=== PATIENT | male | born 1945 | race Caucasian/White ===

== ENCOUNTER 2016-10-30 15:27 | Inpatient (IN) | payer MEDICARE ==
[~2016-10-30] VITALS: Ht 180.3 cm; Wt 97.5 kg
--- NOTE | ~2016-10-30 | WND ---
ADMIT: 10/30/2016 RM/LOC: 406 [facility] MR#: [id number] [address] [address] CARLOS DOUGHERTY [address] [place] [address] [facility] SEX: M AGE: 71 : 1945 DATE OF VISIT: 10/31/2016 REASON FOR VISIT: Right lower extremity cellulitis. HISTORY OF PRESENT ILLNESS: Carlos is a 71-year-old male, who is being seen today for right lower extremity cellulitis. He is cared for in his own home by his brother. He is a [facility] patient. He was initially seen at the [facility]. Carlos has a history of cirrhosis secondary to hepatitis C. He is followed by the [facility] and was recently evaluated and found to be free of any hepatitis C status post treatment with Harvoni. Carlos does report 8/10 pain to the right lower extremity. A venous ultrasound was done on admission and was not found to have any DVTs. Also, x ray was completed and a CT looking for any free air secondary to compartment syndrome. PAST MEDICAL HISTORY: 1. Hepatitis C. 2. Liver cirrhosis. 3. Vitamin D deficiency. 4. Portal hypertension. 5. Posttraumatic stress disorder. 6. Opioid dependence. 7. Obesity. ALLERGIES: Tramadol. CURRENT MEDICATIONS: 1. Dolophine. 2. Clindamycin 900 mg every 8 hours. 3. Zosyn 3.375 g every 8 hours. SOCIAL HISTORY: Carlos resides at home. His brother is his care provider. He denies any tobacco, alcohol, or recreational drug use. FAMILY HISTORY: He denies any family history of diabetes mellitus or heart problems. REVIEW OF SYSTEMS: Carlos denies any fever or chills. He denies nausea, vomiting, or diarrhea. He reports that his appetite is finally good. He denies chest pain, shortness of breath or cough. He does report pain in his right lower extremity is an 8/10 and it is a burning sensation. PHYSICAL EXAMINATION: VITAL SIGNS: Temperature 96.9 degrees Fahrenheit, pulse 91, blood pressure 112/68, respirations 16, pulse ox 96% on room air. EXTREMITIES: Assessment of right lower extremity reveals multiple open weeping areas that are draining copious amounts of yellow serous drainage. There is some superficial skin sloughing of the epithelium along the anterior surface of the right lower extremity. The patient has 2+ pitting edema in the right lower extremity. He has 1+ pedal pulse. He has erythema extending from ADMIT: 10/30/2016 RM/LOC: 406 [facility] MR#: [id number] [address] [place] [address] Wound Care Clinic SEX: M AGE: 71 : 1945 the ankle area to below his knee. ASSESSMENT: 1. Cellulitis to right lower extremity. 2. Edema to lower extremity. PLAN: Staff will cleanse his right lower extremity with soap and water. They will apply Aloe [place] then Xeroform and secure with Kerlix. They need to change this daily and as needed for excessive contamination. If they need to, they can add ABD pads for extra absorption. I would like to thank Dr. Espana for allowing us to participate in Carlos's care. Wound Care will follow along as needed while he is in the hospital. Kristen Jimenez APRN/ saravanan JOB #: [id number] CC: Wilfrido Pierson, Attending Physician Wilfrido Pierson, Family Physician
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
[2016-11-07] MEDS ORDERED: DOCUSATE SODIU1 EACH PO (11:10)
[2016-11-07] MEDS ORDERED: VITAMIN D-32000 UNI1 PO (11:10)
[2016-11-07] MEDS ORDERED: AUGMENTIN875 MG PO (11:11)
[2016-11-07] MEDS ORDERED: PEPCID DPS20 MG PO (11:11)
[2016-11-07] MEDS ORDERED: DOLOPHINE DPS10 MG PO (11:11)
[2016-11-07] MEDS ORDERED: LASIX DPS40 MG PO (11:11)
[2016-11-07] MEDS ORDERED: LOPRESSOR DPS50 MG PO (11:11)
[2016-11-07] MEDS ORDERED: LANOXIN DPS0.125 MG PO (11:12)
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
--- NOTE | 2016-11-13 19:06 | CO ---
ADMIT: 10/30/2016 RM/LOC: 406 [facility] MR#: [id number] [address] [address] CARLOS DOUGHERTY [address] [address] Consultation Report SEX: M AGE: 71 : 1945 DATE OF CONSULTATION: 10/31/2016 ATTENDING PHYSICIAN: Wilfrido Pierson CONSULTING PHYSICIAN: Wilfrido Conroy MD HISTORY OF PRESENT ILLNESS: The patient is a 71-year-old [facility] patient with chronic hepatitis C, who has been cared for at home and over last week has had progressive right-sided leg pain, swelling, redness. I was asked to see for cellulitis, tight compartments, rule out fasciitis or compartment syndrome. PAST MEDICAL HISTORY: Includes hep C infection, history of cirrhosis, vitamin D deficiency, PTSD, opioid dependence. ALLERGIES: TRAMADOL. MEDICATIONS: Include: 1. Clindamycin. 2. Zosyn. 3. Dolophine. 4. He has been on methadone at home. SOCIAL HISTORY: Denies alcohol or drug use. FAMILY HISTORY: Noncontributory. REVIEW OF SYSTEMS: Denies headaches, chest pain, or shortness of breath. He has the right lower extremity pain. PHYSICAL EXAMINATION: VITAL SIGNS: Currently, he is afebrile. Vitals are stable. HEART: Regular. LUNGS: Clear. ABDOMEN: Soft, nondistended, nontender. EXTREMITIES: Lower extremity exam shows significantly swollen right lower extremity with tight compartments and pain to palpation. He has motor function in the right foot, has decreased sensations and some mild paresthesias to exam. LABORATORY AND IMAGING DATA: He has had an MRI, which shows diffuse cellulitis, no abscess. No obvious findings to suggest subcu or fascial air ADMIT: 10/30/2016 RM/LOC: 406 [facility] MR#: [id number] [address] [address] CARLOS DOUGHERTY [address] [place] [address] Consultation Report SEX: M AGE: 71 : 1945 and/or fasciitis. He has normal lactic acid level and reportedly, he has had some improvement since his initial admission with IV antibiotics. ASSESSMENT AND PLAN: The patient is a 71-year-old with severe right lower extremity cellulitis with concerns regarding a compartment syndrome. He has made already some progress. His leg is still in a dependent position. Ideally, I would like to get this leg elevated higher than the level of his heart on 3 or 4 pillows. I think that will significantly get some of the edema and swelling out of his leg to assist in some of his issues with pain. We will continue with IV antibiotics, wound cares, and observation. EDIT: 11/01/2016 0648 njv Wilfrido Conroy MD/ saravanan JOB #: [id number] CC: Wilfrido Pierson, Attending Physician Wilfrido Pierson, Family Physician
--- NOTE | 2016-11-13 19:06 | CO ---
ADMIT: 10/30/2016 RM/LOC: 406 [facility] MR#: [id number] [address] [address] CARLOS DOUGHERTY [address] [place] [address] Consultation SEX: M AGE: 71 : 1945 DATE OF CONSULTATION: 10/31/2016 ATTENDING PHYSICIAN: Wilfrido Pierson CONSULTING PHYSICIAN: Wilfrido Conroy MD REASON FOR CONSULTATION: Right lower leg cellulitis. HISTORY OF PRESENT ILLNESS: Carlos is a very pleasant 71-year-old male, who states that he has noticed right lower leg pain, redness, and swelling for about 8 days now. He is unsure exactly how this happened but denies ever having prior episodes of this. He usually gets around okay with a cane. He further denies any fever or chills. He has been admitted to the hospital and currently on clindamycin and Zosyn. PAST MEDICAL HISTORY: Significant for cirrhosis, prior hepatitis C infection, chronic pain, and unspecified neuropathy. PAST SURGICAL HISTORY: Eye surgery. The patient cannot describe exactly what the eye surgery was. ALLERGIES: TRAMADOL, NALOXONE, AND PENTAZOCINE. FAMILY HISTORY: Noncontributory. SOCIAL HISTORY: The patient denies any current tobacco, alcohol, or illicit drug use. REVIEW OF SYSTEMS: CONSTITUTIONAL: The patient denies any fever, chills, or night sweats. The rest of a comprehensive 10-point review of systems was performed and all other systems are negative. PHYSICAL EXAMINATION: GENERAL: The patient is in no acute distress. He is alert and oriented. HEENT: Head is normocephalic and atraumatic. EOMS are intact. Conjunctivae are free of icterus, erythema, or pallor. Pinnae, free of deformities. Nose is midline. No tracheal deviation. NECK: Supple. SKIN: Negative for jaundice, clubbing, edema, pallor, or cyanosis. LUNGS: Normal respiratory effort. HEART: Distal pulses intact. Regular rate and rhythm. ABDOMEN: Soft, nondistended, and nontender. NEURO: Grossly intact. MUSCULOSKELETAL: Distal pulses hard to palpate in bilateral lower extremities. Right lower extremity with marked erythema and warmth and tenderness. Erythema extends above the knee into the medial thigh. Weeping discharge is clear. There appears also to be some slight cyanosis with ADMIT: 10/30/2016 RM/LOC: 406 [facility] MR#: [id number] [address] [address] [place] [address] Consultation SEX: M AGE: 71 : 1945 bilateral lower extremities. ASSESSMENT: Cellulitis. PLAN: Currently, the patient is afebrile. I have recommended continuing with IV antibiotics and seeing how the patient does. There was no evidence of any eschar or tissue that has a slough that requires debridement. So, no intervention at this time. However, I did consult Wound Care to address this cellulitis and the weeping discharge and hopefully they can recommend a dressing. We will follow this patient along in the hospital and duke his clinical progress. Thank you for the consultation on this patient. DULCE MARIA Gracia / Wilfrido Conroy MD / saravanan JOB #: [id number] CC: Wilfrido Pierson, Attending Physician Wilfrido Pierson, Family Physician
--- NOTE | 2016-12-03 13:16 | HP ---
ADMIT: 10/30/2016 RM/LOC: 406 [facility] MR#: [id number] [address] [address] CARLOS DOGUHERTY [address] [address] History and Physical SEX: M AGE: 71 : 1945 DATE OF SERVICE: CHIEF COMPLAINT: Cellulitis, right leg. CLINICAL HISTORY: Edison is taken care of by his brother, who has been nursing a weeping cellulitis of his right leg. Edison gets [facility] cares through [facility], but [facility] for reasons that are unclear. Brother recognized finely that over the last 4 or 5 days, he has had increasing cellulitis, increasing discomfort and obviously a very infected right leg. He took him to [facility]. Laboratory, etc, was forwarded along with him and records were secondarily submitted from the [facility]. Edison is a patient who has had cirrhosis secondary to hepatitis C and has been on treatment for such and also underwent re-treatment with Harvoni recently. He is followed in the [facility] and recently was evaluated and found to be free of any hepatitis C. As far as his cirrhosis is concerned, he has never had that we know of any hepatic encephalopathy, bleeding esophageal gastric varices, although he and brother both are somewhat vague about such. He has not had other complications, but he has had chronic edema related to his cirrhosis. He has had apparently some moderate ascites as well. Again, the records are incomplete. He has also apparently been on a pain management program, although he is a little indistinct as is his brother about what pain he is treating. He talks mostly about his chronic pain in the lower extremities and I detected there is some form of neuropathy. He is not very informative when asked about orthopedic-related pain. MEDICATIONS: 1. Methadone 120 mg liquid daily (dose unclear). 2. Hydroxyzine. 3. Number of other p.r.n. medications. ALLERGIES: NONE REPORTED. REVIEW OF SYSTEMS: He has not had any nausea or vomiting or other GI symptoms including no history of any melena of late. It is unclear whether he has actually run a fever. He does have some pain whenever he moves his right leg. He has not had any cardiovascular disease and is somewhat vague about the possibility of underlying lung disease. SOCIAL HISTORY: His brother cares for him. He does not smoke or drink currently and has no significant alcohol history in the past according to he and his brother. He wishes a DNR status and understands the ramifications of such and he and his brother both confirm and reconfirm such. ADMIT: 10/30/2016 RM/LOC: 406 [facility] MR#: [id number] [address]20 [place] [address] History and Physical SEX: M AGE: 71 : 1945 PHYSICAL EXAMINATION: GENERAL: Reveals a white male of sunken cheeks, ashen color with a few spider angiomata. He is mentally clear at this time, but thinks and talks quite slowly, which is not a change apparently. LUNGS: Clear. HEART: Regular with a pulse rate at 82. ABDOMEN: Showed some moderate distention and a suggestion of ascites, some liver firmness at the costal margin. I could not really definitely feel any splenomegaly. EXTREMITIES: Shows rather marked cellulitis and weeping wound, light with demarcation that extends clear up into the thigh. There is no palpable crepitus. The left leg shows some mild erythema and some chronic weeping involving the left lower leg. Pulses were difficult to feel on the right, but I believe are present in the left. There is a contracture to the left distal calf and the Achilles tendon of apparent longstanding nature due to an old injury according to his brother. NEUROLOGIC: I cannot demonstrate through asterixis. There is no nuchal rigidity. He understands the gravity of his health situation currently. ADDITIONAL LABORATORY: Included a white count of 19,000. A CK of 1800, but negative troponin. Elevated creatinine at 2.6. IMPRESSION: 1. Cellulitis right leg, advanced without current necrotizing fasciitis. 2. Cirrhosis with ascites and marked peripheral edema. 3. History of hepatitis C, recently completed treatment with Harvoni with 0 viral load. 4. No current evidence of hepatic encephalopathy. 5. Chronic pain, on methadone treatment. 6. Elevated CK with mild rhabdomyolysis, rule out compartment syndrome. 7. Chronic neglected cellulitis. 8. Renal insufficiency. TREATMENT: He has been given some fluids and we will continue with normal saline infusions. He has been started on antibiotics and we will broaden ADMIT: 10/30/2016 RM/LOC: 406 [facility] MR#: [id number] [address] [place] [id number] [place] [address] History and Physical SEX: M AGE: 71 : 1945 those. We will have Dr. Elizabeth of Infectious Disease see him in the morning and undertake x-rays of his leg looking for dissecting air, which I do not currently find. Surgery will also be involved because of his elevated CK to make sure that there is no evidence of any risk for compression and dissecting infection. Overall prognosis is guarded given the extensive cellulitis involving the leg, which has been of approximately 3 weeks duration and treated with aroma therapy or some other essential oil gimmick. He wishes to be a DNR. We will see if we can find a bed for him at the [facility], but we have not had much of luck in caring for [facility] patients and getting assistance for their ongoing care. Wilfrido Pierson MD/ saravanan JOB #: [id number] CC: Wilfrido Pierson, Attending Physician Wilfrido Pierson, Family Physician Stacie Elizabeth MD
--- NOTE | 2017-01-21 10:42 | DS ---
ADMIT: 10/30/2016 RM/LOC: 406 [facility] MR#: [id number] [address] [address] CARLOS QUIGLEY [address] [place] [address] Discharge Summary SEX: M AGE: 71 : 1945 ADMISSION DATE: 10/30/2016 DISCHARGE DATE: 11/06/2016 DISMISSAL DIAGNOSES: 1. Right leg cellulitis. 2. Chronic edema. 3. Cirrhosis secondary to hepatitis C. 4. Renal insufficiency. 5. Chronic arthritis of back, knees, and hip, right. 6. Supraventricular tachycardia. CLINICAL HISTORY: Carlos Quigley came in with marked edema and cellulitis, [facility] the [facility]. He had evidence of severe cellulitis and was seen in consultation with Infectious Disease and Surgery but we did not demonstrate evident necrotizing fasciitis or deep space infection. He was weak, the patient with underlying cirrhosis and known ascites secondary to hepatitis C, who had undergone hepatitis C treatment and then repeat treatment with resolution of hepatitis C viremia. He was brought in, placed on IV antibiotics, and improved rather significantly. Significant efforts were undertaken to help him both with edema, therapy, wound care. He had a short burst of SVT, treated with Lopressor and digoxin. Diarrhea developed, methadone made him too sleepy, and was withheld, and then reinstituted at more appropriate level. He was dismissed on methadone 10 mg p.o. q.i.d., Lasix 40 mg daily, Lopressor 50 mg p.o. b.i.d., Pepcid 20 p.o. b.i.d. He was markedly improved and we took the liberty of stopping his Xanax, hydroxyzine, trazodone, and his high-dose methadone liquid solution. He will [facility] with the [facility] in 2 weeks' time. His brother who is [place] him through the last number of years of his was very supportive and understood the care of goals. At the time of dismissal, he was ambulatory, felt much better, and will continue his outpatient diet and other therapies. Wilfrido Pierson MD/ saravanan JOB #: [id number] CC: Wilfrido Pierson MD, Attending Physician Wilfrido Pierson MD, Family Physician
== END 2016-11-06 14:11 | disposition home or self-care (01) | DRG 603 ==
LOC: ER 15:27 → 4PCU 17:20
PROVIDERS: ADMIT Internal Medicine
DX: L03.115 Cellulitis of right lower limb (principal); R18.8 Other ascites; K76.6 Portal hypertension; M62.82 Rhabdomyolysis; F11.20 Opioid dependence, uncomplicated; I47.1 Supraventricular tachycardia; K74.60 Unspecified cirrhosis of liver; N18.9 Chronic kidney disease, unspecified; G62.9 Polyneuropathy, unspecified; E66.9 Obesity, unspecified; E55.9 Vitamin D deficiency, unspecified; G89.29 Other chronic pain; K29.50 Unspecified chronic gastritis without bleeding; F43.10 Post-traumatic stress disorder, unspecified; Z66 Do not resuscitate; Z86.19 Personal history of other infectious and parasitic diseases; Z68.31 Body mass index [BMI] 31.0-31.9, adult